=== PATIENT | female | born 1945 | race Two or more races ===

== ENCOUNTER → 2018-08-06 11:10 | Outpatient (CLI) | payer OTHER, MEDICAID, SELFPAY ==
--- NOTE | 2018-08-06 11:19 | US_ITS ---
US thyroid HISTORY: ITS.REASON: ACQUIRED HYPOTHYOIDISM,THYROMEGALY ORDERING PHYSICIAN: Marifer Payan PATIENT AGE: 73 years Comparison: None FINDINGS: The right lobe measures 3.8 x 2 x 1.5 cm. There is some heterogeneous echogenicity. Nodule A upper pole 4 x 2 mm hypoechoic Nodule D: 7 x 6 mm isoechoic nodule midpatellar region Nodule C: 1.7 x 0.8 cm isoechoic nodule lower pole these aspect of the thyroid gland The left lobe is 3.4 x 1.4 x 1.4 cm with heterogeneous echogenicity. Nodule A: 4 mm isoechoic nodule lower pole The isthmus has an unremarkable appearance. IMPRESSION: Heterogeneous echogenicity of the thyroid gland with small bilateral nodules as described above
== END ==
PROVIDERS: PCP Nurse Practitioner Family; Visit Provider Nurse Practitioner Family
DX: E03.9 Hypothyroidism, unspecified (principal); E01.0 Iodine-deficiency related diffuse (endemic) goiter
CPT/HCPCS: 76536

== ENCOUNTER → 2018-11-10 15:19 | Outpatient (CLI) | payer MEDICARE, MEDICAID, SELFPAY ==
--- NOTE | 2018-11-10 15:22 | US_ITS ---
US thyroid HISTORY: ITS.REASON: Repeat U/S for thyroid nodule ORDERING PHYSICIAN: Igor Watkins MD PATIENT AGE: 73 years Comparison: None FINDINGS: The right lobe of the thyroid measures 3.7 x 2.2 x 1.3 cm with diffuse heterogeneous echogenicity. Scattered small nodules are present. Largest nodule on the right is hyperechoic in the mid and posterior aspect of the right lobe 9 x 5 mm. This is not significantly changed. The left lobe is 3.6 x 1.8 x 1.3 cm also demonstrating heterogeneous echogenicity. A 4 mm isoechoic nodule is present in the lower pole on the left. Is is unchanged. The isthmus is slightly prominent at 5 mm. IMPRESSION: Heterogeneous echogenicity of the thyroid gland with small bilateral nodules unchanged
[2018-11-10 22:28] LABS: Free T4 (Free Thyroxine) 0.95 ng/dl (0.76-1.46); T4 (Thyroxine) 7.3 ug/dl (4.7-13.3); Thyroid Stimulating Hormone 2.42 uIU/ml (0.358-3.740); Triiodothryronine (T3) Uptake 41 % (31-39)
[2018-11-13 10:14] LABS: Thyroid Peroxidase Antibodies 236 IU/mL (0-34); Thyroid Stimulating Immunoglob <0.10 IU/L (0.00-0.55)
[2018-11-15 07:59] LABS: Calcitonin <2.0 pg/mL (0.0-5.0)
== END ==
PROVIDERS: Visit Provider Otolaryngology
DX: E04.1 Nontoxic single thyroid nodule (principal)
CPT/HCPCS: 76536; 82308; 84436; 84439; 84443; 84445; 84479; 86376

== ENCOUNTER → 2019-06-23 16:32 | Outpatient (CLI) | payer MEDICARE, SELFPAY ==
[2019-06-23 16:35] LABS: Microscopic, Urine URINE MICROSCOPIC (MICROSCOPIC)
[2019-06-23 16:42] LABS: Appearance,Urine CLEAR (Clear); Bilirubin,Urine Negative (Negative); Blood, Urine Negative (Negative); Color,Urine YELLOW (Yellow); Glucose,Urine (UA) Negative (Negative); Ketones,Urine Negative (Negative); Leukocyte Esterase,Urine Negative (Negative); Nitrate,Urine Negative (Negative); Protein,Urine Negative (Negative); Urobilinogen,Urine 0.2 EU/dl (0.2)
[2019-06-23 16:51] LABS: Bacteria,Urine Trace /lpf
== END ==
PROVIDERS: Visit Provider Nurse Practitioner Family
DX: M54.9 Dorsalgia, unspecified (principal); R30.0 Dysuria
CPT/HCPCS: 81001; 87086

== ENCOUNTER → 2020-02-16 13:43 | Outpatient (CLI) | payer MEDICARE, MEDICAID, SELFPAY ==
--- NOTE | 2020-02-16 13:43 | US_ITS ---
PROCEDURE: US THYROID CLINICAL INDICATION: hypothyroid Follow-up thyroid nodules COMPARISON: THY US thyroid from 11/10/2018 FINDINGS: Right lobe: 4.1 x 2.1 x 1.3 cm. There is diffuse heterogeneous echogenicity. A an 8 mm hyperechoic nodules present in the mid polar region posteriorly not demonstrated on the previous exam. TR 3 mildly suspicious recommend continued follow-up. Hypoechoic nodules present in the upper pole 5 mm unchanged. There is a questionable 6 mm hyperechoic nodule in the lower pole unchanged Left lobe: 3.1 x 1.3 x 1.2 cm diffuse heterogeneous echogenicity. No discrete mass Isthmus: . the isthmus is thickened at 6 mm Additional findings: IMPRESSION: Diffuse heterogeneous echotexture of the thyroid gland. Stable nodules are present on the right with a new hyperechoic nodule in the posterior aspect of the right lobe. TR level 3 mildly suspicious less than 1.5 cm. Recommend six-month follow-up Dictated by: Marcellus Egan MD 02/16/2020 16:25 Electronically signed by Marcellus Egan MD in [place] 02/16/2020 16:25
== END ==
PROVIDERS: PCP Nurse Practitioner Family; Visit Provider Otolaryngology
DX: E06.3 Autoimmune thyroiditis (principal)
CPT/HCPCS: 76536

== ENCOUNTER → 2020-02-27 16:25 | Outpatient (CLI) | payer MEDICARE, MEDICAID, SELFPAY ==
[2020-02-27 18:14] LABS: Free T4 (Free Thyroxine) 0.79 ng/dl (0.78-2.19)
[2020-02-27 18:28] LABS: Thyroid Stimulating Hormone 3.28 uIU/mL (0.465-4.68)
[2020-02-29 10:59] LABS: Thyroid Peroxidase Antibodies 244 IU/mL (0-34)
[2020-03-01 14:26] LABS: Thyroid Stimulating Immunoglob <0.10 IU/L (0.00-0.55)
== END ==
PROVIDERS: Visit Provider Otolaryngology
DX: E06.3 Autoimmune thyroiditis (principal)
CPT/HCPCS: 36415; 84439; 84443; 84445; 86376

== ENCOUNTER → 2020-03-09 13:37 | Outpatient (CLI) | payer MEDICARE, SELFPAY ==
[2020-03-09 15:10] LABS: Coronavirus 19 IgG Antibody Negative (Negative); Coronavirus 19 IgM Antibody Negative (Negative)
== END ==
PROVIDERS: Visit Provider Family Medicine
DX: U07.1 COVID-19 (principal)
CPT/HCPCS: 86328

== ENCOUNTER → 2020-04-09 16:14 | Outpatient (CLI) | payer MEDICARE, MEDICAID, SELFPAY ==
--- NOTE | 2020-04-09 16:22 | XR_ITS ---
PROCEDURE: XR CHEST 2V CLINICAL HISTORY: lung lesions, pain post fall COMPARISON: No exams were available for comparison FINDINGS: The cardiomediastinal silhouette and pulmonary vascularity are within normal limits. Linear density is present in the left upper lobe and may be due to an area of fibrosis/scarring or atelectasis. A postobstructive process could have a similar appearance. There is some mild prominence of the left hilum. There is mild right apical pleural thickening with slight increased density in the right apex. There is also mild prominence of the right hilum. No acute bony abnormalities. IMPRESSION: Atelectatic or fibrotic change in the left upper lobe. Cannot exclude a postobstructive process. CT with contrast may provide further evaluation. There is also some mild right apical pleural thickening with patchy density in the right apex. Previous exams are not available for comparison. Dictated by: Marcellus Egan MD 04/09/2020 16:33 Electronically signed by Marcellus Egan MD in [facility] 04/09/2020 16:33
== END ==
PROVIDERS: PCP Family Medicine; Visit Provider Family Medicine
DX: E06.3 Autoimmune thyroiditis (principal); J45.909 Unspecified asthma, uncomplicated
CPT/HCPCS: 71046

== ENCOUNTER → 2020-04-26 17:23 | Outpatient (CLI) | payer MEDICARE, MEDICAID, SELFPAY ==
[2020-04-26 18:05] LABS: Chloride 106 mmol/L (98-107); Potassium 3.9 mmoL/L (3.5-5.1); Sodium 142 mmol/L (136-145)
[2020-04-26 18:08] LABS: Anion Gap 11.9 mEq/L (5-15); Blood Urea Nitrogen 18 mg/dl (7-17); Carbon Dioxide 28 mmol/L (22.0-30.0); Estimated Glomerular Filt Rate 54 ml/min (>60); GFR (African American) 65 ML/MIN (>60)
[2020-04-26 18:09] LABS: Calcium 9.3 mg/dl (8.4-10.2); Glucose 106 mg/dl (74-100)
== END ==
PROVIDERS: Visit Provider Family Medicine
DX: Z01.818 Encounter for other preprocedural examination (principal)
CPT/HCPCS: 36415; 80048

== ENCOUNTER → 2020-04-27 13:22 | Outpatient (CLI) | payer MEDICARE, MEDICAID, SELFPAY ==
--- NOTE | 2020-04-27 13:22 | CT_ITS ---
PROCEDURE: CT CHEST W CON CLINCAL INDICATION: abnormal cxr History of breast cancer, abnormal chest x-ray with possible postobstructive process left upper lobe, follow-up abnormal radiograph, fall with injury and pain COMPARISON: CT CT CHEST W/O CONTRAST from 05/31/2018 TECHNIQUE: IV Contrast: 75ml Optiray 320 Axial images obtained with sagittal and coronal reformats. All CT scans at the facility use one or more dose reduction, viz: automated exposure control, ma/kV adjustment per patient size (including targeted exams where dose is matched to indication, i.e. head), or iterative reconstruction technique. FINDINGS: HEART AND MEDIASTINAL STRUCTURES: There is mild ectasia ascending aorta measuring up to 4.1 cm. No evidence of aortic dissection. Coronary artery calcifications are present. No mediastinal or hilar mass or adenopathy in the mediastinum. There are some small axillary lymph nodes present slightly more prominent on the right compared to the left but not significantly changed. There is a 1.5 x 1 cm anterior mediastinal lymph node slightly more prominent previously measuring 1.3 x 1 cm. LUNGS AND PLEURAL SPACES: There is scarring in the lung apices slightly more extensive on the right compared to the left but not significantly changed. There is some nodular subpleural thickening in the right upper lobe posteriorly contiguous with the apical scarring. This is probably not significantly changed considering the difference in slice orientation. There is an ill-defined 8 mm parenchymal opacity in the left upper lobe medially image 15 which was not present on the previous study. Subpleural thickening is present in the right upper lobe posteriorly near the major fissure unchanged linear density is present in the right lung base consistent with scarring slightly more prominent from the previous study. There is an 8 mm noncalcified nodule in the right lower lobe medially not significantly changed. Scarring is present in the left upper lobe with pleural-parenchymal areas of increased density which appears similar when compared to the previous CT scan consistent with scarring. No central obstructing lesion is evident. There is also some subpleural thickening in the left upper lobe posteriorly unchanged and in the left lower lobe posteriorly not significantly changed. No new suspicious abnormalities are evident. BONY STRUCTURES: Degenerative changes thoracic spine UPPER ABDOMEN: 9 mm hypodensity left hepatic lobe consistent with a hepatic cyst. Mild nonspecific thickening of the distal esophagus and stomach ADDITIONAL FINDINGS: There are bilateral breast implants which are subpectoral IMPRESSION: There are scattered areas of scarring. The radiographic abnormality mentioned on 04/09/2020 is felt represent scarring and not a post obstructive process No acute findings are evident. There is mildly prominent right axillary lymph nodes measuring up to 1.5 x 1 cm previously measuring 1.3 x 0.8 cm and mildly prominent mediastinal lymph node which is slightly larger compared to the previous exam. Continued follow-up suggested in this patient with history of breast cancer. Dictated by: Marcellus Egan MD 04/28/2020 14:15 Marcellus Egan MD in [facility] 04/28/2020 14:15
== END ==
PROVIDERS: PCP Emergency Medicine; Visit Provider Family Medicine
DX: R93.89 Abnormal findings on diagnostic imaging of other specified body structures (principal)
CPT/HCPCS: 71260; Q9967

== ENCOUNTER → 2020-08-13 14:21 | Outpatient (CLI) | payer MEDICARE, MEDICAID, SELFPAY ==
--- NOTE | 2020-08-13 14:21 | US_ITS ---
PROCEDURE: US THYROID CLINICAL INDICATION: GOITER COMPARISON: US US THYROID from 02/16/2020 FINDINGS: Right lobe: 2.2cm x 3.5cm x 1.3cm Left lobe: 1.0cm x 3.4cm x 1.1cm Isthmus: The isthmus is thickened with heterogeneous echogenicity measuring 6 mm in AP dimension. 4 mm hyperechoic nodule mid polar region on the right is unchanged. 10 mm hyperechoic nodule in the mid polar region is unchanged. There is heterogeneous echogenicity of the left lobe of the thyroid gland with a questionable hyperechoic nodule in the midpole at 6 mm versus heterogeneous echogenicity. Additional findings: IMPRESSION: Heterogeneous echogenicity of the thyroid gland with stable right-sided nodules. Dictated by: Marcellus Egan MD 08/14/2020 07:01 Marcellus Egan MD in [place] 08/14/2020 07:01
[2020-08-13 17:39] LABS: Thyroid Stimulating Hormone 4.35 uIU/mL (0.465-4.68)
[2020-08-15 11:53] LABS: Thyroid Peroxidase Antibodies 261 IU/mL (0-34)
== END ==
PROVIDERS: PCP Emergency Medicine; Visit Provider Otolaryngology
DX: E04.9 Nontoxic goiter, unspecified (principal); E06.3 Autoimmune thyroiditis
CPT/HCPCS: 36415; 76536; 84439; 84443; 86376

== ENCOUNTER 2020-12-02 09:43 | Emergency (ER) | payer MEDICARE, MEDICAID, SELFPAY ==
[2020-12-02 09:49] VITALS: BP 170/78; PULSE 74; RESP 16; TEMP 36.4; O2SAT 95; BMI 29.5
--- NOTE | 2020-12-02 10:19 | HMH.EDUTC ---
[facility] [place] Clinical Impression: Vein disorder Disposition: Home, Self-Care Condition on Discharge: Good Instructions: DI on Treatment of Varicose Veins of the Leg Additional Instructions: leave dressing in place, after 24 hrs change outer dressing leave small bandage in place. follow up in office this week return if bleeding returns Referrals: Ander Zaldivar MD [Primary Care Provider] - Time of Disposition: 10:28 Medical Decision Making - Larry Inquiry Pt receiving controlled substance: No Vital Signs: 12/02/20 09:49 Temperature 97.6 F Temperature Source Tympanic Pulse Rate [Right] 74 Respiratory Rate 16 Blood Pressure [Right Arm] 170/78 H Blood Pressure Mean [Right Arm] 108 Blood Pressure Source [Right Arm] Automatic Cuff Blood Pressure Position [Right Arm] Sitting 02 Sat by Pulse Oximetry 95 Oxygen Delivery Method Room Air [facility] [place]PI - General Chief complaint: Urgent Treatment Center Stated complaint: Broken vein in left leg/bleeding Time Seen by Provider: 12/02/20 10:19 Mode of Arrival: Ambulatory Source of Information: Patient Limitations: No Limitations Description of Symptoms (Recalled from Triage Doc. by RN): around midnight last night pt busted one of her vericose veins on the inside corner of her L ankle. it has been bleeding since. a pressure dressing has been on it the entire time. pts toes are bluish however there is still a pulse and color is returning as the bandage is off. HEENT Symptoms (Recalled from RN notes): No Resp Symptoms (Recalled from RN notes): No Skin Symptoms (Recalled from RN notes): Yes (L inside of ankle is bleeding from busted vericose vein) MS Symptoms (Recalled from RN notes): No Functional Status (Recalled from RN notes): na - History of Present Illness Provider Complaint: 75 yr old female presented with bleeding to ankle. Pt states around midnight last night pt busted one of her vericose veins on the inside corner of her L ankle. pt states it has been bleeding since. family member had a pressure dressing has been on it the entire time. pts toes are bluish however there is still a pulse and color is returning as the bandage is off. - Related Data Previous Rx's Medication Instructions Recorded aspirin 81 mg tablet,delayed 81 mg PO DAILY #90 tab 06/01/19 release omega-3 acid ethyl esters 1 gram 2 cap PO BID #180 cap 06/01/19 capsule ofloxacin 0.3 % ear drops 5 drp OTIC BID 14 Days #10 ml 02/27/20 levothyroxine 50 mcg capsule 50 mcg PO DAILY #90 cap 05/31/20 fluticasone propionate 50 See Rx Instructions .ROUTE 07/30/20 mcg/actuation nasal .COMPLEX #16 gram spray,suspension meclizine 25 mg tablet 25 mg PO DAILY PRN #30 tab 07/31/20 akrowhdeog-hxctoryeczraw-msqcaxmy 1 tab PO BID PRN #60 tab 09/14/20 50 mg-325 mg-40 mg tablet loratadine-pseudoephedrine ER 10 See Rx Instructions .ROUTE 11/02/20 mg-240 mg tablet,extended .COMPLEX #90 tab [id number] albuterol sulfate 90 mcg/actuation See Rx Instructions .ROUTE 11/08/20 aerosol inhaler .COMPLEX #18 g fluticasone propionate 220 See Rx Instructions .ROUTE 11/08/20 mcg/actuation HFA aerosol inhaler .COMPLEX #12 g Allergies Allergy/AdvReac Type Severity Reaction Status Date / Time No Known Allergies Allergy Verified 12/02/20 09:46 - Worker's Comp Is this a Worker's Comp case?: No [facility] History - Hepatitis A Screen Drug use history?: No High risk sexual behaviors?: No History of sexually transmitted infection?: No Currently employed?: No Childcare worker?: No Do you have indoor plumbing?: Yes Do you have electricity?: Yes Attestation statement:: This patient has been screened for Hepatitis A risk factors. I have reviewed the patient's past medical history: Yes Medical History: Reports:: Asthma, Cancer, Migraine Other Medical History: Reports: Hypothyroidism, Other Laterality Cases: Bilateral: Mastectomy Other Surgeries: Yes: Cholecystectomy Amputation: No Fractures: No - S
[2020-12-02 10:20] VITALS: BP 147/79; PULSE 72; RESP 16; TEMP 36.6
== END 2020-12-02 10:32 | disposition home or self-care (01) ==
PROVIDERS: Emergency Provider Nurse Practitioner Family; PCP Emergency Medicine
DX: I83.892 Varicose veins of left lower extremity with other complications (principal); J45.909 Unspecified asthma, uncomplicated; E06.3 Autoimmune thyroiditis; Z85.3 Personal history of malignant neoplasm of breast; Z79.899 Other long term (current) drug therapy
CPT/HCPCS: 12001; G0463; 99202

== ENCOUNTER → 2021-02-21 13:10 | Outpatient (CLI) | payer MEDICARE, MEDICAID, SELFPAY ==
--- NOTE | 2021-02-21 13:10 | US_ITS ---
PROCEDURE: US THYROID CLINICAL INDICATION: thyroid nodule COMPARISON: US US THYROID from 08/13/2020 FINDINGS: Right lobe: 3.7 x 1.5 x 1.4 cm 3 small subcentimeter nodules again noted in the right lobe similar to prior exam, the largest measuring about 9 mm. Left lobe: 3.2 x 1.7 x 1.1 cm. Two small subcentimeter nodules in the left thyroid lobe, the largest measuring about 5 millimeters, similar to prior exam. Isthmus: Mildly thickened 6 millimeters. No discrete nodule. Additional findings: Mild heterogeneous echogenicity to the thyroid gland but with vascular flow appeared to be normal. IMPRESSION: A few small bilateral subcentimeter pulmonary nodules again noted similar to prior exam. Repeat thyroid ultrasound in 6 months recommended for continued close follow-up. Dictated by: Rakesh Ferrari MD 02/21/2021 15:06 Rakesh Ferrari MD in [place] 02/21/2021 15:06
== END ==
PROVIDERS: PCP Emergency Medicine; Visit Provider Otolaryngology
DX: E06.3 Autoimmune thyroiditis (principal)
CPT/HCPCS: 76536

== ENCOUNTER → 2021-02-22 16:55 | Outpatient (CLI) | payer MEDICARE, MEDICAID, SELFPAY ==
[2021-02-22 18:18] LABS: Free T4 (Free Thyroxine) 0.82 ng/dl (0.78-2.19)
[2021-02-22 18:52] LABS: Thyroid Stimulating Hormone 2.78 uIU/mL (0.465-4.68)
[2021-02-24 10:12] LABS: Thyroid Peroxidase Antibodies 249 IU/mL (0-34)
[2021-02-25 14:13] LABS: Thyroid Stimulating Immunoglob <0.10 IU/L (0.00-0.55)
== END ==
PROVIDERS: Visit Provider Otolaryngology
DX: E06.3 Autoimmune thyroiditis (principal)
CPT/HCPCS: 36415; 84439; 84443; 84445; 86376

== ENCOUNTER → 2021-07-10 18:33 | Outpatient (CLI) | payer MEDICARE, MEDICAID, SELFPAY | PROVIDERS: Visit Provider Nurse Practitioner Family | DX: N39.0 Urinary tract infection, site not specified (principal) | CPT/HCPCS: 87086 ==

== ENCOUNTER → 2022-08-13 15:15 | Outpatient (CLI) | payer MEDICARE, MEDICAID, SELFPAY ==
[2022-08-13 18:10] LABS: Alanine Aminotransferase 26 U/L (12-78); Albumin Level 4.3 g/dl (3.5-5.0); Albumin/Globulin Ratio 1.6 (1.1-1.8); Alkaline Phosphatase 140 U/L (38-126); Anion Gap 13.8 mEq/L (5-15); Aspartate Amino Transferase 36 U/L (14-36); Bilirubin,Total 0.3 mg/dl (0.2-1.3); Blood Urea Nitrogen 20 mg/dl (7-17); Calcium 10.3 mg/dl (8.4-10.2); Carbon Dioxide 29 mmol/L (22.0-30.0); Chloride 105 mmol/L (98-107); Chol/HDL Ratio 4.5 (1-3.5); Cholesterol 279 mg/dl (140-200); Estimated Glomerular Filt Rate 54 ml/min (>60); GFR (African American) 65 ML/MIN (>60); Globulin 2.7 g/dL (1.3-3.2); Glucose 99 mg/dl (74-100); HDL Cholesterol 62 mg/dl (40-60); Potassium 4.8 mmoL/L (3.5-5.1); Sodium 143 mmol/L (136-145); Triglycerides 228 mg/dl (30-150); VLDL Cholesterol 46 mg/dL (0-40)
[2022-08-13 18:22] LABS: Direct LDL Cholesterol 145.19 mg/dL (100-129)
[2022-08-13 18:27] LABS: Free T4 (Free Thyroxine) 0.82 ng/dl (0.78-2.19)
[2022-08-13 18:28] LABS: Basophils # 0.1 K/mm3 (0-0.2); Basophils % 1.7 % (0.1-2.0); Eosinophils # 0.7 K/mm3 (0.0-0.4); Eosinophils % 8.7 % (0.1-12.0); Hematocrit 41.4 % (37.0-47.0); Hemoglobin 13.2 g/dL (12.2-16.2); Lymphocytes # 2.6 K/mm3 (0.7-4.5); Lymphocytes % 32.6 % (10-50); Mean Corpuscular Hemoglobin 30.6 pg (27.0-31.2); Mean Corpuscular Volume 95.6 fl (81-99); Mean Platelet Volume 9.4 fl (7.4-10.4); Monocytes # 0.5 K/mm3 (0.1-1.0); Monocytes % 5.9 % (1.7-9.3); Neutrophils # 4.1 K/mm3 (1.8-7.8); Neutrophils % 51.1 % (37.0-80.0); Platelet Count 422 K/mm3 (142-424); Red Blood Count 4.33 M/mm3 (4.20-5.40); Red Cell Distribution Width 13.2 % (11.5-17.5)
[2022-08-13 18:40] LABS: Thyroid Stimulating Hormone 3.28 uIU/mL (0.465-4.68)
[2022-08-13 19:13] LABS: 25-OH Vitamin D, Total 31.2 ng/mL (30-100)
== END ==
PROVIDERS: PCP Emergency Medicine; Visit Provider Emergency Medicine
DX: E66.3 Overweight (principal); E06.3 Autoimmune thyroiditis; E55.9 Vitamin D deficiency, unspecified
CPT/HCPCS: 80053; 80061; 82306; 84439; 84443; 85025

== ENCOUNTER 2022-10-21 07:21 | Day surgery (SDC) | payer MEDICARE, MEDICAID, SELFPAY ==
[2022-10-16 13:43] VITALS: BMI 27.4
[2022-10-21] VITALS (13 sets, daily range): BP systolic 151–171; BP diastolic 68–99; PULSE 62–74; RESP 15–18; TEMP 36.3–36.7; O2SAT 95–100
--- NOTE | 2022-10-21 12:32 | SUR.OPER ---
0908-verbal order from MD Hyde to give pt additional 1mg of Versed and to give 25mcg of IV Fentanyl once Orders received and carried out w/ GOKUL Patel at bedside. TECHNOLOGIST INFECTIOUS DISEASE did take over monitoring patient at this time.
== END 2022-10-21 10:09 | disposition home or self-care (01) ==
PROVIDERS: PCP Emergency Medicine; Visit Provider Ophthalmology
DX: H25.813 Combined forms of age-related cataract, bilateral (principal); Z79.899 Other long term (current) drug therapy
CPT/HCPCS: 66984; V2632

== ENCOUNTER → 2022-11-04 07:27 | Day surgery (SDC) | payer MEDICARE, MEDICAID, SELFPAY | PROVIDERS: PCP Emergency Medicine; Visit Provider Ophthalmology | DX: Z53.09 Procedure and treatment not carried out because of other contraindication (principal); Z91.199 Patient's noncompliance with other medical treatment and regimen due to unspecified reason; H26.9 Unspecified cataract ==

== ENCOUNTER 2022-11-18 06:41 | Day surgery (SDC) | payer MEDICARE, MEDICAID, SELFPAY ==
[2022-11-18 07:01] VITALS: BP 190/92; PULSE 82; RESP 20; TEMP 36.6; O2SAT 97; BMI 27.4
--- NOTE | 2022-11-18 07:29 | EXP.ANES.CKL ---
[facility] Disclaimer: The information contained in this section may have been updated after the patient was seen, as this information can be updated by other users. Medical History Allergies Anxiety Asthma History of cataract History of tuberculosis Hx of breast cancer Hyperlipidemia Hypothyroid Migraine Skin cancer Urinary tract infection Surgical History H/O mastectomy History of cholecystectomy Hx of cataract surgery Family History Mother Heart disease Father Tuberculosis Brother Lung cancer Other Diabetes Social History Smoking Status: Never smoker alcohol intake: never substance use type: denies use current occupational status: retired Travel in the last 8 weeks: None household members: none housing: house caffeine: Yes [facility] Anesthesia Checklist Patient Identification Patient Identification: Arm Band and Verbal (Name & ) Structural Data Admitted From: Home Planned Operative Procedure/s: Cataract Consent for Planned Operative Procedure(s) Verified: Yes NPO Status Verified Time NPO: 00:00 Airway Assessment C-Spine Mobility Assessed: Yes TMJ Mobility Assessed: Yes Dentition: Good Dentition Neurological Assessment Level of Consciousness: Awake Hx Seizures: No Numbness or tingling in extremities: No Anesthesia Plan Anesthesia Risk discussed: Yes Anesthesia Plan: Verified ASA Class: II Anesthesia Type: MAC
[2022-11-18 08:45] VITALS: BP 136/80; PULSE 69; RESP 16; TEMP 36.6; O2SAT 95
[2022-11-18 09:00] VITALS: BP 136/84; PULSE 72; RESP 16; O2SAT 98
[2022-11-18 09:15] VITALS: BP 147/89; PULSE 78; RESP 16; TEMP 36.6; O2SAT 100
== END 2022-11-18 09:30 | disposition home or self-care (01) ==
PROVIDERS: PCP Emergency Medicine; Visit Provider Ophthalmology
DX: H25.812 Combined forms of age-related cataract, left eye (principal); Z79.899 Other long term (current) drug therapy
CPT/HCPCS: 66984; V2632

== ENCOUNTER → 2023-08-10 23:53 | Outpatient (CLI) | payer MEDICARE, MEDICAID, SELFPAY ==
[2023-08-10 18:23] LABS: Coronavirus 19, PCR Not Detected (NotDetected); Influenza A, PCR Not Detected (NotDetected); Influenza B, PCR Not Detected (NotDetected)
[2023-08-10 19:02] LABS: Basophils # 0.1 K/mm3 (0-0.2); Basophils % 0.7 % (0.1-2.0); Eosinophils # 0.6 K/mm3 (0.0-0.4); Eosinophils % 5.8 % (0.1-12.0); Hematocrit 38.9 % (37.0-47.0); Hemoglobin 12.8 g/dL (12.2-16.2); Lymphocytes # 2.8 K/mm3 (0.7-4.5); Lymphocytes % 25.6 % (10-50); Mean Corpuscular HGB Conc 32.8 g/dL (31.8-35.4); Mean Corpuscular Hemoglobin 31.9 pg (27.0-31.2); Mean Corpuscular Volume 97.4 fl (81-99); Mean Platelet Volume 9.3 fl (7.4-10.4); Monocytes # 0.6 K/mm3 (0.1-1.0); Monocytes % 5.7 % (1.7-9.3); Neutrophils # 6.8 K/mm3 (1.8-7.8); Neutrophils % 62.2 % (37.0-80.0); Platelet Count 356 K/mm3 (142-424); Red Blood Count 3.99 M/mm3 (4.20-5.40); Red Cell Distribution Width 12.9 % (11.5-17.5); White Blood Count 10.9 K/mm3 (4.8-10.8)
[2023-08-10 19:40] LABS: Alanine Aminotransferase 29 U/L (12-78); Albumin Level 4.1 g/dl (3.5-5.0); Albumin/Globulin Ratio 1.5 (1.1-1.8); Alkaline Phosphatase 122 U/L (38-126); Anion Gap 10.7 mEq/L (5-15); Aspartate Amino Transferase 34 U/L (14-36); Bilirubin,Total 0.2 mg/dl (0.2-1.3); Blood Urea Nitrogen 16 mg/dl (7-17); Calcium 8.7 mg/dl (8.4-10.2); Carbon Dioxide 26 mmol/L (22.0-30.0); Chloride 108 mmol/L (98-107); Estimated Glomerular Filt Rate 61 ml/min (>60); GFR (African American) 73 ML/MIN (>60); Globulin 2.8 g/dL (1.3-3.2); Glucose 116 mg/dl (74-100); Potassium 3.7 mmoL/L (3.5-5.1); Sodium 141 mmol/L (136-145); Total Protein,Serum 6.9 g/dl (6.3-8.2)
[2023-08-10 20:09] LABS: Thyroid Stimulating Hormone 4.55 uIU/mL (0.465-4.68)
== END ==
LOC: LAB.DROPOF 23:54
PROVIDERS: PCP Family Medicine; Visit Provider Family Medicine
DX: E06.3 Autoimmune thyroiditis (principal); R09.89 Other specified symptoms and signs involving the circulatory and respiratory systems; R05.9 Cough, unspecified; R09.82 Postnasal drip; E66.3 Overweight; J45.901 Unspecified asthma with (acute) exacerbation; J30.2 Other seasonal allergic rhinitis; J34.89 Other specified disorders of nose and nasal sinuses; J32.9 Chronic sinusitis, unspecified; Z68.29 Body mass index [BMI] 29.0-29.9, adult
CPT/HCPCS: 80053; 84443; 85025; 87636

== ENCOUNTER 2023-11-09 18:12 | Outpatient (CLI) | payer MEDICARE, MEDICAID, SELFPAY ==
[2023-11-09 17:52] LABS: Basophils # 0.1 K/mm3 (0-0.2); Basophils % 1.6 % (0.1-2.0); Eosinophils # 0.8 K/mm3 (0.0-0.4); Eosinophils % 9.6 % (0.1-12.0); Hematocrit 40.9 % (37.0-47.0); Hemoglobin 13.4 g/dL (12.2-16.2); Lymphocytes # 2.6 K/mm3 (0.7-4.5); Lymphocytes % 30.7 % (10-50); Mean Corpuscular HGB Conc 32.7 g/dL (31.8-35.4); Mean Corpuscular Hemoglobin 32.5 pg (27.0-31.2); Mean Corpuscular Volume 99.5 fl (81-99); Mean Platelet Volume 9.5 fl (7.4-10.4); Monocytes # 0.6 K/mm3 (0.1-1.0); Neutrophils # 4.4 K/mm3 (1.8-7.8); Neutrophils % 51.1 % (37.0-80.0); Platelet Count 374 K/mm3 (142-424); Red Blood Count 4.11 M/mm3 (4.20-5.40); Red Cell Distribution Width 12.9 % (11.5-17.5); White Blood Count 8.5 K/mm3 (4.8-10.8)
[2023-11-09 19:11] LABS: Thyroid Stimulating Hormone 2.79 uIU/mL (0.465-4.68)
[2023-11-09 19:49] LABS: 25-OH Vitamin D, Total 47.8 ng/mL (30-100)
== END 2023-11-09 23:59 ==
LOC: LAB.DROPOF 18:12
PROVIDERS: PCP Internal Medicine; Visit Provider Internal Medicine
DX: R53.83 Other fatigue (principal); E55.9 Vitamin D deficiency, unspecified; E06.3 Autoimmune thyroiditis; Z79.899 Other long term (current) drug therapy
CPT/HCPCS: 82306; 84443; 85025

== ENCOUNTER 2024-01-27 12:58 | Outpatient (CLI) | payer MEDICARE, MEDICAID, SELFPAY ==
--- NOTE | 2024-01-27 13:19 | MR_ITS ---
FINAL REPORT CLINICAL HISTORY: neck pain, migrianes COMPARISON: None FINDINGS: Multi planar MR imaging was obtained of the cervical spine. There is abnormal decreased signal throughout the cervical discs. The vertebrae are of normal height. There is no malalignment. The cervical cord demonstrates normal signal and configuration. C2-C3: There is no evidence of significant disc bulge or protrusion. There is no significant facet hypertrophy. C3-C4: There is a mild bilateral annular bulge present with mild bilateral neural foraminal narrowing. C4-C5: There is no evidence of significant disc bulge or protrusion. There is no significant facet hypertrophy. C5-C6: A moderate annular bulge is present with moderate bilateral neural foraminal narrowing. C6-C7: A moderate annular bulge is present with severe right and moderate left neural foraminal narrowing. C7-T1: There is no evidence of significant disc bulge or protrusion. There is no significant facet hypertrophy. IMPRESSION: Multilevel cervical degenerative change, most severe at the C6-7 level with severe right and moderate left neural foraminal narrowing. Reviewed, Interpreted and Dictated by Gonzalez Tran MD Transcribed by Estrella Butler Authenticated and [facility]
== END 2024-01-27 23:59 | disposition home or self-care (01) ==
PROVIDERS: PCP Internal Medicine; Visit Provider Internal Medicine
DX: G43.909 Migraine, unspecified, not intractable, without status migrainosus (principal); M54.2 Cervicalgia
CPT/HCPCS: 72141

== ENCOUNTER 2024-02-24 18:57 | Emergency (ER) | payer MEDICARE, MEDICAID, SELFPAY ==
[2024-02-24 19:05] VITALS: BP 185/73; PULSE 82; RESP 19; TEMP 36.7; O2SAT 98; BMI 27.4
--- NOTE | 2024-02-24 19:09 | ED_ITS ---
Discharge Plan Disposition Patient Disposition: Home, Self-Care Condition: Good Prescriptions Prescriptions: No Action mqgwhodbop-eeeukpgvinnce-tzjp 50-325-40 mg tablet 1 tab PO BIDP PRN (Reason: Pain) Patient Comments: TAKE 1 TABLET BY MOUTH TWICE DAILY NEEDED FOR PAIN Allergy Relief,Nasal Decongest 10-240 mg tablet extended release 24 hr 1 tab PO DAILY Patient Comments: TAKE ONE TABLET BY MOUTH EVERY DAY Referrals Follow up/Referrals: Carlos Casas MD [Primary Care Provider] - See instructions Pravin Tipton MD [Staff Physician] - See instructions Activity Restrictions/Add. Instructions Additional Instructions/Restrictions: Rest the extremity as much time as possible for the next few days. Elevate the extremity as tolerated while you are resting. If the wound starts bleeding again, hold pressure on the site and elevate it to get it to stop. If you can't get it to stop the please return selene. Follow up with general surgery (Dr. Tipton) if you continue to have issues with bleeding varicose veins. Follow up with your regular doctor. GO TO THE ER FOR ANY WORSENING SYMPTOMS Clinical Impressions Clinical Impression: Bleeding from varicose vein Instructions Patient Instructions: DI for Varicose Veins Discharge ED Provider: Rakesh Hurley [facility] General Stated complaint: vein in RT leg bleeding Time Seen by Provider: 02/24/24 19:09 History of Present Illness Provider Complaint: She states that about 1 hour ago she began having a bleeding varicose vein on her right lower leg. She has a history of getting these bleeding varicose veins. She denies any trauma to her leg. She states that she was in the shower and it just started bleeding. She states that she did shave her legs yesterday and she thinks that may have played into the cause of this. She denies taking any blood thinners. Related Data Home Medications Medication Instructions Recorded Confirmed vbagigrqnt-avmwnbpprjwwf-prtpztva 1 tab PO BIDP PRN Pain 02/24/24 02/24/24 50 mg-325 mg-40 mg tablet loratadine-pseudoephedrine ER 10 1 tab PO DAILY 02/24/24 02/24/24 mg-240 mg tablet,extended [id number] (Allergy Relief and Nasal Decongestant) Allergies Allergy/AdvReac Type Severity Reaction Status Date / Time adhesive Allergy Rash Verified 12/11/23 13:10 [facility] Disclaimer: The information contained in this section may have been updated after the patient was seen, as this information can be updated by other users. Medical History Impacted cerumen of right ear Urinary tract infection History of tuberculosis Asthma Migraine Anxiety Hypothyroid History of cataract Hyperlipidemia Skin cancer Allergies Hx of breast cancer Surgical History Hx of cataract surgery H/O mastectomy bilateral History of cholecystectomy Family History Mother Heart disease Father Tuberculosis Brother Lung cancer Other Diabetes Social History Smoking Status: Never smoker alcohol intake: never substance use type: denies use current occupational status: retired Travel in the last 8 weeks: None household members: none housing: house caffeine: Yes ROS Obtained: Yes All systems reviewed & no additional complaints except as documented Constitutional Constitutional: Denies chills and Denies fever(s) Eyes Eyes: Denies eye discharge ENT Ears, Nose, Mouth, and Throat: Denies dizziness, Denies otalgia and Denies sore throat Cardiovascular Cardiovascular: Denies chest pain Respiratory Respiratory: Denies shortness of breath, Denies chest congestion, Denies cough, Denies stridor and Denies wheezing Gastrointestinal Gastrointestingal: Denies nausea or vomiting Musculoskeletal Musculoskeletal: Reports system reviewed and no additional complaints, except as documented and Denies arthralgias Integumentary/Breasts Skin/Breast: Reports as per HPI Neurologic Neurologic: Denies dizziness and Denies paresthesias Allergic/Immunologic Allergic/Immunologic: Denies wheezing Physical Exam General General appearance: alert and in no apparent distress Head Head exam: atraumatic, normocephalic and normal inspection Eye Eye exam: Present normal appearance, PERRL and EOMI ENT ENT exam: Present normal exam, normal oropharynx, mucous membranes moist, TM's normal bilaterally and normal external ear exam Neck Neck exam: Present normal inspection, full ROM and trachea midline; Absent meningismus or lymphadenopathy Chest Chest inspection: Present normal inspection and symmetric chest wall rise; Absent tenderness Respiratory Respiratory exam: Present normal lung sounds bilaterally; Absent respiratory distress Cardiovascular Cardiovascular exam: Present regular rate and normal rhythm; Absent JVD Abdominal Exam Abdominal exam: Present soft and normal bowel sounds; Absent distention, tenderness or guarding Extremities Exam Extremities exam: Present normal inspection, full ROM and normal capillary refill; Absent calf tenderness Back Exam Back exam: Present normal inspection; Absent tenderness Neurological Exam Neurological exam: Present alert and oriented X3 Psychiatric Psychiatric exam: Present normal affect and normal mood Skin Skin exam: Present other (she has multiple varicose veins on both her lower legs. on her right lower begum area there is an with oozing blood. pressure was held and it was easily stopped. surgicel patch was placed over the bleeding area. it was secured loosely with coban. ) Lymphatic Lymphatic Findings: no adenopathy Medical Decision Making Medical Records Medical records reviewed: No I reviewed the patient's medical records. Larry Inquiry Pt receiving controlled substance: No
--- NOTE | 2024-02-24 19:35 | PC.NURSE ---
RIGHT LEG CLEANED AT THIS TIME AND BLEEDING FROM VARICOSE VEIN NOTED TO MID HDEZ AREA. PRESSURE HELD. SURGICELE, OIL EMULSION DRESSING, DRY DRESSING AND COBAN APPLIED.
[2024-02-24 19:41] VITALS: BP 185/73; PULSE 82; RESP 19; TEMP 36.7; O2SAT 98
== END 2024-02-24 19:53 | disposition home or self-care (01) ==
PROVIDERS: Emergency Provider Nurse Practitioner Family; PCP Family Medicine
DX: I83.891 Varicose veins of right lower extremity with other complications (principal)
CPT/HCPCS: 99203; 99212; G0463

== ENCOUNTER 2024-06-17 16:20 | Outpatient (CLI) | payer MEDICARE, MEDICAID, SELFPAY | END 2024-06-17 23:59 | disposition home or self-care (01) | LOC: LAB.DROPOF 06-18 10:40 | PROVIDERS: PCP Family Medicine; Visit Provider Family Medicine | DX: L72.0 Epidermal cyst (principal) | CPT/HCPCS: 87070; 87077; 87186; 87205 ==

== ENCOUNTER 2025-03-20 15:15 | Outpatient (CLI) | payer MEDICARE, SELFPAY ==
[2025-03-20 18:56] LABS: Hematocrit 36.1 % (37.0-47.0); Hemoglobin 12.0 g/dL (12.2-16.2); Immature Granulocytes % 0.6 %; Mean Corpuscular HGB Conc 33.2 g/dL (31.8-35.4); Mean Corpuscular Hemoglobin 30.8 pg (27.0-31.2); Mean Corpuscular Volume 92.6 fl (81-99); Nucleated Red Blood Cells % 0 %; Platelet Count 324 K/mm3 (142-424); Red Blood Count 3.90 M/mm3 (4.20-5.40); Red Cell Distribution Width-SD 44.3 fL; White Blood Count 10.4 K/mm3 (4.8-10.8)
[2025-03-20 20:07] LABS: Alanine Aminotransferase 22 U/L (12-78); Albumin Level 3.9 g/dl (3.5-5.0); Albumin/Globulin Ratio 1.5 (1.1-1.8); Alkaline Phosphatase 120 U/L (38-126); Anion Gap 13.9 mEq/L (5-15); Aspartate Amino Transferase 30 U/L (14-36); Bilirubin,Total 0.3 mg/dl (0.2-1.3); Blood Urea Nitrogen 15 mg/dl (7-17); Calcium 8.8 mg/dl (8.4-10.2); Carbon Dioxide 23 mmol/L (22.0-30.0); Chloride 106 mmol/L (98-107); Creatinine,Serum 0.80 mg/dl (0.52-1.04); Estimated Glomerular Filt Rate 69 ml/min (>60); GFR (African American) 84 ML/MIN (>60); Globulin 2.6 g/dL (1.3-3.2); Glucose 91 mg/dl (74-100); Potassium 3.9 mmoL/L (3.5-5.1); Sodium 139 mmol/L (136-145); Total Protein,Serum 6.5 g/dl (6.3-8.2)
[2025-03-20 20:40] LABS: Thyroid Stimulating Hormone 2.51 uIU/mL (0.465-4.68)
[2025-03-20 22:09] LABS: Hepatitis C Ab Qual. W/ RFX NEGATIVE (Negative)
[2025-03-22 06:12] LABS: Hepatitis B Surface Antigen Negative (Negative)
== END 2025-03-20 23:59 | disposition home or self-care (01) ==
LOC: LAB.DROPOF 03-21 09:46
PROVIDERS: PCP Family Medicine; Visit Provider Family Medicine
DX: E03.9 Hypothyroidism, unspecified (principal); E06.3 Autoimmune thyroiditis; Z11.59 Encounter for screening for other viral diseases
CPT/HCPCS: 80053; 80074; 84443; 85025; 87340; 87389